=== PATIENT | male | born 1980 | race Caucasian/White ===

== ENCOUNTER 2020-11-07 12:32 | Emergency (ER) | payer OTHER ==
--- NOTE | 2020-11-07 14:23 | EDM.PDOC ---
ED HPI GENERAL MEDICAL PROBLEM - General Chief Complaint: Upper Extremity Injury/Pain Stated Complaint: R ARM INJURY Time Seen by Provider: 11/07/20 13:48 Source of Information: Reports: Patient, RN Notes Reviewed History Limitations: Reports: No Limitations - History of Present Illness INITIAL COMMENTS - FREE TEXT/NARRATIVE: Patient is a 40-year-old male presenting to the emergency department with complaints of pain to his right forearm. Reports that he was kicked by a cow earlier in the day. He was doing work thereafter and felt a popping sensation and pain. He denies pain to palpation but complains of pain with movement of the arm. Right Arm Pain Score (Numeric/FACES): 8 - Related Data Allergies Allergy/AdvReac Type Severity Reaction Status Date / Time No Known Allergies Allergy Verified 11/07/20 13:39 Home Meds: Home Meds . [No Known Home Meds] 11/07/20 [History] Past Medical History - Past Health History Medical/Surgical History: Denies Medical/Surgical History Social & Family History - Tobacco Use Tobacco Use Status *Q: Never Tobacco User Second Hand Smoke Exposure: No - Caffeine Use Caffeine Use: Reports: Coffee, Soda - Recreational Drug Use Recreational Drug Use: No Review of Systems - Review of Systems Review Of Systems: Comprehensive ROS is negative, except as noted in HPI. ED EXAM, GENERAL - Physical Exam Exam: See Below Exam Limited By: No Limitations General Appearance: Alert, WD/WN, No Apparent Distress Respiratory/Chest: No Respiratory Distress, Lungs Clear, Normal Breath Sounds, No Accessory Muscle Use, Chest Non-Tender Cardiovascular: Normal Peripheral Pulses, Regular Rate, Rhythm, No Edema, No Gallop, No JVD, No Murmur, No Rub Extremities: Other (Tenderness to palpation over the ulnar aspect of the right forearm. No swelling, ecchymosis, or obvious deformity. No open areas.) Neurological: Alert, Oriented, CN II-XII Intact, Normal Cognition, Normal Gait, Normal Reflexes, No Motor/Sensory Deficits Psychiatric: Normal Affect, Normal Mood Skin Exam: Warm, Dry, Intact, Normal Color, No Rash ED TRAUMA EXTREMITY PROCEDURES - Splinting Right Upper Extremity Splint Site: right forearm Pre-Procedure NV Status: Normal Post-Procedure NV Status: Normal Splint Material: Fiberglass Splint Design: Gutter Applied & Form Fitted By: Provider Provider Post-Splint Application NV Check: NV Status Normal, Good Position Complications: No Course - Vital Signs Last Recorded V/S: Last Vital Signs Temp 98.0 F 11/07/20 13:38 Pulse 82 11/07/20 13:38 Resp 20 11/07/20 13:38 BP 165/119 H 11/07/20 13:38 Pulse Ox 99 11/07/20 13:38 - Orders/Labs/Meds Orders: Active Orders 24 hr Category Date Time Status Elbow 2V Rt [CR] Stat Exams 11/07/20 13:41 Taken Forearm 2V Rt [CR] Stat Exams 11/07/20 13:41 Taken Humerus Rt [CR] Stat Exams 11/07/20 13:41 Taken - Re-Assessments/Exams Free Text/Narrative Re-Assessment/Exam: 11/07/20 14:20 Patient is a 40-year-old male presenting to the emergency department complains of pain to his right forearm after being kicked by a cow earlier in the day. X- rays were ordered by the triage nurse. Patient has a nondisplaced midshaft fracture of the ulna. Splint was applied. See procedure notes. We will provide him with a sling and send referral to orthopedist, Dr. Marinelli. Discharge instructions as documented. Departure - Departure Time of Disposition: 14:21 Disposition: Home, Self-Care 01 Condition: Good Clinical Impression: Fracture of ulna Qualifiers: Encounter type: initial encounter Ulna location: shaft Fracture type: closed Fracture morphology: transverse Fracture alignment: nondisplaced Laterality: right Qualified Code(s): S52.224A - Nondisplaced transverse fracture of shaft of right ulna, initial encounter for closed fracture - Discharge Information Instructions: Ulnar Fracture Referrals: Audie Marinelli MD [Physician] - Additional Instructions: You were seen in the emergency department today for pain in your right forearm after being kicked by a cow. X-rays are completed and showed a midshaft fracture of your ulna. You have been placed in a splint. This should remain on at all times and be kept clean and dry. Wear the sling when you are up and moving around. Recommend elevation of the extremity when you at rest as well as intermittent icing. May use Tylenol and ibuprofen as needed for discomfort. Referral has been sent to orthopedist, Dr. Marinelli. Contact his office today to s et up a follow-up visit for next week. Return to ER for new or worsening symptoms of concern. Sepsis Event Note (ED) - Focused Exam Vital Signs: Vital Signs Temp Pulse Resp BP Pulse Ox 11/07/20 13:38 98.0 F 82 20 165/119 H 99
--- NOTE | 2020-11-07 14:36 | CR ---
Right elbow: 2 views of the right elbow were obtained. Comparison: No previous elbow study is available. Slightly displaced fracture is seen within the diaphysis of the ulna. No joint effusion is seen within the elbow. No additional fracture or other abnormality is appreciated. Impression: 1. Ulnar diaphyseal fracture. 2. Two-view right elbow study is otherwise unremarkable. Diagnostic code #3
--- NOTE | 2020-11-07 14:36 | CR ---
Right forearm: 2 views of the right forearm were obtained. Comparison: No prior forearm study is available. Minimally displaced fracture is identified within the mid one third diaphysis of the ulna. Radius appears to be intact. Soft tissue swelling is noted. No additional bony abnormality is appreciated. Impression: 1. Minimally displaced diaphyseal fracture within the ulna. 2. Soft tissue swelling. Diagnostic code #3
--- NOTE | 2020-11-07 14:36 | CR ---
Right humerus: 2 views of the right humerus were obtained. Comparison: No prior humerus study is available. No fracture or other bony abnormality is appreciated. Impression: 1. No abnormality is identified on 2 view right humerus study. Diagnostic code #1
== END 2020-11-07 14:50 | disposition home or self-care (01) ==
LOC: JD.ED 12:32
DX: S52.224A Nondisplaced transverse fracture of shaft of right ulna, initial encounter for closed fracture (principal); W55.22XA Struck by cow, initial encounter
CPT/HCPCS: 29125; 73060-26-RT; 73060-RT; 73070-26-RT; 73070-RT; 73090-26-RT; 73090-RT; 99283-25